=== PATIENT | female | born 1960 | race Caucasian/White ===

== ENCOUNTER 2018-04-17 16:16 | Emergency (ER) | payer MEDICAID ==
[2018-04-17] MEDS ORDERED: Ibuprofen 600 MG Tab PO ONE (17:19)
--- NOTE | 2018-04-17 18:07 | EDM.PDOC ---
<Moe Hardy M - Last Filed: 04/17/18 18:24> ED HPI GENERAL MEDICAL PROBLEM - General Chief Complaint: Lower Extremity Injury/Pain Stated Complaint: RT FOOT PAIN, DROP A CAN ON IT Time Seen by Provider: 04/17/18 16:16 Source of Information: Reports: Patient, Family History Limitations: Reports: No Limitations - History of Present Illness Onset Date: 04/17/18 Onset Time: 16:00 Duration: Hour(s): Location: Reports: Lower Extremity, Right Quality: Reports: Dull, Pressure Severity: Mild Improves with: Reports: Rest Worsens with: Reports: Movement Context: Reports: Trauma Associated Symptoms: Reports: No Other Symptoms right foot Pain Score (Numeric/FACES): 6 - Related Data Allergies Allergy/AdvReac Type Severity Reaction Status Date / Time albuterol Allergy Swollen Verified 04/17/18 17:31 Eyes paroxetine [From Paxil] Allergy Shaking Verified 04/17/18 17:33 Penicillins Allergy Hives Verified 04/17/18 17:31 Serotonin 5HT-3 Antagonists Allergy Itching Verified 04/17/18 17:33 sertraline [From Zoloft] Allergy Itching Verified 04/17/18 17:33 Home Meds: Home Meds Aspirin 81 mg PO DAILY 04/17/18 [History] Benztropine [Cogentin] 1 mg PO BID 04/17/18 [History] Budesonide/Formoterol [Symbicort 80-4.5 MCG] 2 puff PO BID 04/17/18 [History] Calcitonin ([place]) [Miacalcin Nasal [place]] 1 spray NASLF DAILY 04/17/18 [ History] Docusate Sodium [Colace] 100 mg PO BID 04/17/18 [History] Famotidine 40 mg PO BEDTIME 04/17/18 [History] Lubiprostone [Amitiza] 8 mcg PO BID 04/17/18 [History] Lurasidone HCl [Latuda] 80 mg PO DAILY 04/17/18 [History] Meloxicam 7.5 mg PO Q12H 04/17/18 [History] Omeprazole 20 mg PO DAILY 04/17/18 [History] Ondansetron HCl [Zofran] 4 mg PO TID PRN 04/17/18 [History] Simvastatin [Zocor] 20 mg PO BEDTIME 04/17/18 [History] SitaGLIPtin [Januvia] 100 mg PO DAILY 04/17/18 [History] Solifenacin Succinate [Vesicare] 10 mg PO DAILY 04/17/18 [History] buPROPion HCl [Wellbutrin Xl] 300 mg PO DAILY 04/17/18 [History] metFORMIN HCl [Metformin HCl] 1,000 mg PO BID 04/17/18 [History] rOPINIRole [Requip] 1 mg PO BEDTIME 04/17/18 [History] Past Medical History Neurological History: Reports: Other (See Below) Other Neuro History: coma for 10 days about 4years ago Endocrine/Metabolic History: Reports: Diabetes, Type II Social & Family History - Family History Family Medical History: Noncontributory - Tobacco Use Smoking Status *Q: Former Smoker Used Tobacco, but Quit: Yes Month/Year Tobacco Last Used: 36 - Caffeine Use Caffeine Use: Reports: Soda - Recreational Drug Use Recreational Drug Use: No Review of Systems - Review of Systems Constitutional: Reports: No Symptoms Eyes: Reports: No Symptoms Ears: Reports: No Symptoms Nose: Reports: No Symptoms Mouth/Throat: Reports: No Symptoms Respiratory: Reports: No Symptoms Cardiovascular: Reports: No Symptoms GI/Abdominal: Reports: No Symptoms Genitourinary: Reports: No Symptoms Musculoskeletal: Reports: No Symptoms Skin: Reports: No Symptoms Neurological: Reports: No Symptoms Psychiatric: Reports: No Symptoms ED EXAM, GENERAL - Physical Exam Exam: See Below Exam Limited By: No Limitations General Appearance: Alert, WD/WN, Mild Distress Eye Exam: Bilateral Eye: Normal Inspection Ears: Normal External Exam Ear Exam: Bilateral Ear: Auricle Normal Nose: Normal Inspection, Normal Mucosa, No Blood Throat/Mouth: Normal Lips, Normal Voice, No Airway Compromise Head: Atraumatic, Normocephalic Neck: Normal Inspection, Supple, Non-Tender Respiratory/Chest: No Respiratory Distress, Lungs Clear Cardiovascular: Normal Peripheral Pulses, Regular Rate, Rhythm, No Edema Peripheral Pulses: 1+: Brachial (L) GI/Abdominal: Normal Bowel Sounds, Soft, Non-Tender (Female) Exam: Deferred Rectal (Female) Exam: Deferred Back Exam: Normal Inspection Extremities: Normal Inspection, Limited Range of Motion (right forefoot) Neurological: Alert, Oriented Psychiatric: Normal Affect, Normal Mood Skin Exam: Warm, Dry, Intact Lymphatic: No Adenopathy Course - Vital Signs Text/Narrative:: Imaging: X Ray right foot: NAD Impression: Right forefoot sprain Tx: ICE, Motrin Last Recorded V/S: Last Vital Signs Temp 97.5 F 04/17/18 18:13 Pulse 62 04/17/18 18:13 Resp 18 04/17/18 18:13 BP 149/90 H 04/17/18 18:13 Pulse Ox 99 04/17/18 18:13 - Orders/Labs/Meds Orders: Active Orders 24 hr Category Date Time Status Foot Comp Min 3V Rt [CR] Stat Exams 04/17/18 17:18 Taken Meds: Medications Discontinued Medications Generic Name Dose Route Start Last Admin Trade Name Freq PRN Reason Stop Dose Admin Ibuprofen 600 mg 04/17/18 17:19 04/17/18 17:27 Motrin PO 04/17/18 17:20 600 mg ONETIME ONE Administration Departure - Departure Time of Disposition: 18:07 Disposition: Home, Self-Care 01 Condition: Good Clinical Impression: Sprain of foot, right Qualifiers: Encounter type: initial encounter Qualified Code(s): S93.601A - Unspecified sprain of right foot, initial encounter - Discharge Information Instructions: Foot Sprain Referrals: John Scott MD [Primary Care Provider] - Forms: ED Department Discharge Additional Instructions: Please apply ice to the affected area, motrin for pain, please f/u, come back if your symptoms get worse acutely <John Scott - Last Filed: 04/18/18 07:24> ED HPI GENERAL MEDICAL PROBLEM - General Source of Information: Reports: Patient, Family History Limitations: Reports: No Limitations - History of Present Illness INITIAL COMMENTS - FREE TEXT/NARRATIVE: 57 y.o.w.f came to the ed after a bag of cat food fell onto her right forefood. She has now discomfort in her right forefood with movement. No open wound. no swelling, no tenderness, no other acute medical issues. BP 155/88 RR 18 Pulse ox 96% on RA Temp 36.8 pulse 78 Review of Systems - Review of Systems Review Of Systems: See Below Constitutional: Reports: No Symptoms Eyes: Reports: No Symptoms Ears: Reports: No Symptoms Nose: Reports: No Symptoms Mouth/Throat: Reports: No Symptoms Respiratory: Reports: No Symptoms Cardiovascular: Reports: No Symptoms GI/Abdominal: Reports: No Symptoms Genitourinary: Reports: No Symptoms Musculoskeletal: Reports: Foot Pain Skin: Reports: No Symptoms Neurological: Reports: No Symptoms Psychiatric: Reports: No Symptoms ED EXAM, GENERAL - Physical Exam Exam: See Below Exam Limited By: No Limitations General Appearance: Alert, WD/WN, Mild Distress Eye Exam: Bilateral Eye: Normal Inspection Ears: Normal External Exam Ear Exam: Bilateral Ear: Auricle Normal Nose: Normal Inspection, Normal Mucosa, No Blood Throat/Mouth: Normal Lips, Normal Voice, No Airway Compromise Head: Atraumatic, Normocephalic Neck: Normal Inspection, Supple, Non-Tender Respiratory/Chest: No Respiratory Distress, Lungs Clear Cardiovascular: Normal Peripheral Pulses, Regular Rate, Rhythm, No Edema Peripheral Pulses: 1+: Brachial (L) GI/Abdominal: Normal Bowel Sounds, Soft, Non-Tender (Female) Exam: Deferred Rectal (Female) Exam: Deferred Back Exam: Normal Inspection Extremities: Normal Inspection, Limited Range of Motion Neurological: Alert, Oriented Psychiatric: Normal Affect, Normal Mood Skin Exam: Warm, Dry, Intact Lymphatic: No Adenopathy Course - Vital Signs Text/Narrative:: 57 y.o.w.f came to the ed after a bag of cat food fell onto her right forefood. She has now discomfort in her right forefood with movement. No open wound. no swelling, no tenderness, no other acute medical issues. BP 155/88 RR 18 Pulse ox 96% on RA Temp 36.8 pulse 78 57 Y.O W F with right forefoot pain Imaging: right foot: NAD, official report is pending Impression: Right foot sprain Tx: [place] Reexam: Improved, pt was able to ambulate Plan: D/C with instruction.
== END 2018-04-17 18:13 | disposition home or self-care (01) ==
LOC: FB.ED 16:16
DX: S93.601A Unspecified sprain of right foot, initial encounter (principal); E11.9 Type 2 diabetes mellitus without complications; Z88.8 Allergy status to other drugs, medicaments and biological substances; Z88.0 Allergy status to penicillin; Z79.82 Long term (current) use of aspirin; Z79.899 Other long term (current) drug therapy; Z87.891 Personal history of nicotine dependence; W20.8XXA Other cause of strike by thrown, projected or falling object, initial encounter
CPT/HCPCS: 73630-RT; 99283; A9270-GY